=== PATIENT | male | born 1950 | race Caucasian/White ===

== ENCOUNTER 2021-02-09 08:37 | Emergency (ER) | payer BC, MEDICARE ==
--- NOTE | 2021-02-09 10:27 | EDM.PDOC ---
ED HPI GENERAL MEDICAL PROBLEM - General Chief Complaint: Genitourinary Problem Stated Complaint: CATHADER TAKEN OUT LAST TUES AND NOW CAN'T URINATE Time Seen by Provider: 02/09/21 09:41 - History of Present Illness INITIAL COMMENTS - FREE TEXT/NARRATIVE: See paper chart for details Abdominal Pain Score (Numeric/FACES): 9 - Related Data Allergies Allergy/AdvReac Type Severity Reaction Status Date / Time No Known Allergies Allergy Verified 02/09/21 09:13 Home Meds: Home Meds Simvastatin 5 mg PO DAILY 02/09/21 [History] Past Medical History HEENT History: Reports: Impaired Vision Cardiovascular History: Reports: [place] Genitourinary History: Reports: Prostate Disorder Oncologic (Cancer) History: Reports: Other (See Below) Other Oncologic History: bladder 2010 Social & Family History - Tobacco Use Tobacco Use Status *Q: Current Every Day Tobacco User Years of Tobacco use: 52 Packs/Tins Daily: 0.5 - Caffeine Use Caffeine Use: Reports: Coffee - Recreational Drug Use Recreational Drug Use: No ED ROS GENERAL - Review of Systems Review Of Systems: See Below Reason Not Obtained: See paper chart for details ED EXAM, RENAL/ - Physical Exam Exam: See Below Text/Narrative:: See paper chart for details Course - Vital Signs Last Recorded V/S: Last Vital Signs Temp 97 F 02/09/21 09:09 Pulse 65 02/09/21 09:09 Resp 18 02/09/21 09:09 BP 116/63 02/09/21 09:09 Pulse Ox 95 02/09/21 09:09 Departure - Departure Time of Disposition: 10:27 Disposition: Home, Self-Care 01 Condition: Good Clinical Impression: Retention of urine - Discharge Information Referrals: PCP,None [Primary Care Provider] - Sepsis Event Note (ED) - Focused Exam Vital Signs: Vital Signs Temp Pulse Resp BP Pulse Ox 02/09/21 09:09 97 F 65 18 116/63 95
== END 2021-02-09 11:00 | disposition home or self-care (01) ==
LOC: JP.ED 08:37
DX: R33.9 Retention of urine, unspecified (principal); I25.2 Old myocardial infarction; Z72.0 Tobacco use
CPT/HCPCS: 99283